=== PATIENT | male | born 1950 | race Caucasian/White ===

== ENCOUNTER 2018-09-12 07:45 | Emergency (ER) | payer BC, MEDICARE ==
[2018-09-12] MEDS ORDERED: IPRATROPIUM/ALBUTEROL (0.5MG/3MG) NEB INH ONE (07:51)
[2018-09-12] MEDS ORDERED: ASPIRIN 81 MG CHEWABLE TABLET PO ONE (07:56)
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
[2018-09-12 08:24] LABS: BLOOD UREA NITROGEN 36 mg/dL (8-23); CREATININE 1.6 mg/dL (0.7-1.2); EST GLOMERULAR FILTRATION RATE 46 mL/min
[2018-09-12 08:25] LABS: HEMATOCRIT 35.2 % (42.0-52.0); MEAN CELL VOLUME 89.6 fl (81-97); MEAN CORPUSCULAR HEMOGLOBIN 30.5 pg (27-33); MEAN CORPUSCULAR HGB CONC 34.1 g/dl (32-36); MEAN PLATELET VOLUME 11.1 fl (7.4-10.4); PARTIAL THROMBOPLASTIN TIME 27.7 SECONDS (24.5-39.1); PLATELET COUNT 233 K/uL (130-400); PROTHROMBIN TIME (PATIENT) 9.7 SECONDS (9.5-12.1); RED BLOOD COUNT 3.93 M/uL (4.40-5.70); WHITE BLOOD COUNT W/O DIFF 12.4 K/uL (4.2-12.2)
[2018-09-12 08:27] LABS: GLUCOSE,RANDOM 292 mg/dL (74-109)
[2018-09-12 08:44] LABS: INFLUENZA A NEGATIVE (NEGATIVE); INFLUENZA B NEGATIVE (NEGATIVE)
[2018-09-12] MEDS ORDERED: HYDRALAZINE 20MG/ML VIAL IV ONE (09:12)
[2018-09-12] MEDS ORDERED: CEFTRIAXONE 1GM/50ML BAG 1 GM/50 ML BAG IVPB ONE (09:16)
--- NOTE | 2018-09-13 10:20 | RADIOLOGY REPORT ---
DATE: 09/12/18 EXAM: TWO-VIEW, CHEST. HISTORY: DIFFICULTY BREATHING. TECHNIQUE: Frontal and lateral views of the chest were performed. COMPARISON: 08/13/2018. FINDINGS: Heart size is normal. No pulmonary vascular congestion. Focal air space opacities in both lung bases. No pleural effusion. IMPRESSION: FOCAL AIR SPACE OPACITIES IN BOTH LOWER LOBES. NO PLEURAL EFFUSION. JOB NUMBER: [id number] MTDD
== END 2018-09-12 10:06 | disposition short-term general hospital (02) ==
LOC: ER 07:45
DX: J18.9 Pneumonia, unspecified organism (principal); J20.9 Acute bronchitis, unspecified; N28.9 Disorder of kidney and ureter, unspecified; R79.89 Other specified abnormal findings of blood chemistry; R06.00 Dyspnea, unspecified; I10 Essential (primary) hypertension; E11.9 Type 2 diabetes mellitus without complications; I25.2 Old myocardial infarction; F17.210 Nicotine dependence, cigarettes, uncomplicated; Z90.5 Acquired absence of kidney; Z79.84 Long term (current) use of oral hypoglycemic drugs
CPT/HCPCS: 99285 ×2; 96365; 96375; 85730; 85610; 80048; 87400; 84484; 85379; 85027; 83880; 71046; 94640; 93005; 93010; J0696